=== PATIENT | female | born 1940 | race Caucasian/White ===

== ENCOUNTER 2021-07-25 20:12 | Inpatient (IN) | payer MEDICARE ==
[2021-07-25 21:52] VITALS: BMI 28.0
[2021-07-25 23:26] LABS: SARS-CoV-2 NAA Rapid Test Not Detected (NotDetected)
[2021-07-26] MEDS: Sodium Chloride 0.9% 1,000 ML IV SCH ×3 (00:34→21:06)
[2021-07-26] MEDS ORDERED: Piperacillin/Tazobactam 3.375 GM in Sodium Chloride 0.9% 100 ML IVPB SCH (01:00)
[2021-07-26] MEDS ORDERED: Ondansetron PF 4 MG/2 ML Vial IVP PRN (03:18)
[2021-07-26] MEDS ORDERED: Ondansetron ODT 4 MG TAB PO PRN (03:18)
[2021-07-26] MEDS ORDERED: Acetaminophen 650 MG Suppository PR PRN (03:18)
[2021-07-26] MEDS ORDERED: Morphine 4 MG/ML VIAL SLOW IVP PRN (03:20)
[2021-07-26] MEDS: Piperacillin/Tazobactam 3.375 GM in Sodium Chloride 0.9% 100 ML IVPB SCH ×3 (05:58→21:05)
[2021-07-26 06:20] LABS: #Lymphocytes 1.5 thou/uL (1.20-3.40); #Monocytes 1.3 thou/uL (0.11-0.59); #Neutrophils 10.5 thou/uL (1.40-6.50); %Basophils 0.3 % (0.0-1.0); %Eosinophils 0.2 % (0.0-10.0); %Neutrophils 78.5 % (42.0-75.0); Mean Corpuscular HGB CONC 33.3 g/dL (32.0-36.0); Mean Corpuscular Hemoglobin 30.5 pg (27.0-31.0); Mean Corpuscular Volume 91.6 fL (78.0-98.0); Mean Platelet Volume 8.6 fL (7.4-10.4); Platelet Count 193 thou/uL (130-400); Red Blood Cell (RBC) Count 3.93 mill/uL (4.20-5.40); White Blood Cell (WBC) Count 13.4 thou/uL (4.8-10.8)
[2021-07-26 06:42] LABS: Anion Gap 10 mmol/L (10-20); BUN (Urea Nitrogen) 14 mg/dL (9.8-20.1); CK (CPK) 643 U/L (29-168); Calc. Creatinine Clearance 77 mL/min (70-130); Calcium 8.5 mg/dL (7.8-10.44); Carbon Dioxide 22 mmol/L (23-31); Chloride 109 mmol/L (98-107); Glucose 101 mg/dL (83-110); Potassium 3.5 mmol/L (3.5-5.1); Sodium 137 mmol/L (136-145)
[2021-07-26] MEDS ORDERED: FLU VACC QS2021-22(65YR UP)/PF 240 MCG/0.7 ML SYRINGE IM ONE (09:00)
[2021-07-26] MEDS ORDERED: Famotidine/PF 20 mg/2ml Vial ONE (11:05)
[2021-07-26] MEDS ORDERED: Fentanyl 100 MCG/2 ML VIAL ONE (12:01)
[2021-07-26] MEDS ORDERED: Bacitracin Zinc Ointment 30 gm TUBE ONE (12:05)
[2021-07-26] MEDS ORDERED: Bupivacaine PF 0.5% 30 ML VIAL ONE (12:05)
[2021-07-26] MEDS ORDERED: Neomycin-Polymyxin 1 ML AMP ONE (12:05)
[2021-07-26] MEDS ORDERED: Piperacillin/Tazobactam 3.375 GM VIAL ONE (12:07)
[2021-07-26] MEDS ORDERED: Sodium Chloride 0.9% 100 ML ONE (12:07)
[2021-07-26] MEDS ORDERED: PROPOFOL 200 MG/20 ML VIAL ONE (12:41)
[2021-07-26] MEDS ORDERED: Dexamethasone 20 MG/5 ML VIAL ONE (12:41)
[2021-07-26] MEDS ORDERED: Lidocaine 1% PF 5 ML VIAL ONE (12:41)
[2021-07-26] MEDS ORDERED: Ondansetron PF 4 MG/2 ML Vial ONE (12:41)
[2021-07-26] MEDS ORDERED: Ondansetron HCl/PF 4 MG/2 ML Vial IVP PRN (13:41)
[2021-07-27 04:41] LABS: #Lymphocytes 0.8 thou/uL (1.20-3.40); #Monocytes 0.3 thou/uL (0.11-0.59); #Neutrophils 7.2 thou/uL (1.40-6.50); %Basophils 0.2 % (0.0-1.0); %Eosinophils 0.1 % (0.0-10.0); %Lymphocytes 9.5 % (21.0-51.0); %Neutrophils 86.2 % (42.0-75.0); Hemoglobin 11.3 g/dL (12.0-16.0); Mean Corpuscular HGB CONC 33.3 g/dL (32.0-36.0); Mean Corpuscular Hemoglobin 30.6 pg (27.0-31.0); Mean Corpuscular Volume 91.9 fL (78.0-98.0); Mean Platelet Volume 8.5 fL (7.4-10.4); Platelet Count 173 thou/uL (130-400); RBC Distribution Width 13.8 % (11.5-14.5); Red Blood Cell (RBC) Count 3.68 mill/uL (4.20-5.40); White Blood Cell (WBC) Count 8.3 thou/uL (4.8-10.8)
[2021-07-27] MEDS: Piperacillin/Tazobactam 3.375 GM in Sodium Chloride 0.9% 100 ML IVPB SCH ×2 (05:17→16:02)
[2021-07-27] MEDS: Sodium Chloride 0.9% 1,000 ML IV SCH ×2 (06:15→16:11)
[2021-07-28] MEDS: Piperacillin/Tazobactam 3.375 GM in Sodium Chloride 0.9% 100 ML IVPB SCH ×3 (00:19→16:05)
[2021-07-28] MEDS: Sodium Chloride 0.9% 1,000 ML IV SCH ×2 (05:57→16:05)
[2021-07-28] MEDS ORDERED: Polyethylene Glycol 3350 17 GM Packet PO PRN (08:07)
[2021-07-28] MEDS ORDERED: Non-Formulary Item 1 EACH (Famotidine [Famotidine] 40 MG Tablet) PO SCH (09:00)
[2021-07-28] MEDS: Docusate 100 MG CAP PO SCH ×2 (09:46→21:10)
[2021-07-28] MEDS: Saccharomyces boulardii 250 MG CAP PO SCH (09:46)
[2021-07-28] MEDS: Multivit, Therapeutic 1 TAB PO SCH (09:46)
[2021-07-28] MEDS: Famotidine 20 MG TAB PO SCH ×2 (09:47→21:10)
[2021-07-28] MEDS: Acetaminophen 325 MG TAB PO PRN (17:27)
[2021-07-28] MEDS ORDERED: Multivit, Therapeutic 1 TAB PO SCH (21:00)
[2021-07-28] MEDS: Folic Acid 1 MG TAB PO SCH (21:10)
[2021-07-28] MEDS: Cyanocobalamin (Vitamin B-12) 1,000 MCG TAB PO SCH (21:10)
[2021-07-29] MEDS: Piperacillin/Tazobactam 3.375 GM in Sodium Chloride 0.9% 100 ML IVPB SCH ×4 (00:07→20:16)
[2021-07-29] MEDS: Acetaminophen 325 MG TAB PO PRN ×2 (00:12→18:31)
[2021-07-29 06:24] LABS: #Basophils 0.1 thou/uL (0.0-0.2); #Eosinphils 0.2 thou/uL (0.0-0.7); #Lymphocytes 2.1 thou/uL (1.20-3.40); #Monocytes 0.8 thou/uL (0.11-0.59); #Neutrophils 4.5 thou/uL (1.40-6.50); %Basophils 0.7 % (0.0-1.0); %Eosinophils 2.9 % (0.0-10.0); %Lymphocytes 27.3 % (21.0-51.0); %Monocytes 10.2 % (0.0-10.0); %Neutrophils 58.9 % (42.0-75.0); Hemoglobin 11.6 g/dL (12.0-16.0); Mean Corpuscular HGB CONC 33.8 g/dL (32.0-36.0); Mean Corpuscular Hemoglobin 31.4 pg (27.0-31.0); Mean Corpuscular Volume 92.8 fL (78.0-98.0); Mean Platelet Volume 8.2 fL (7.4-10.4); Platelet Count 203 thou/uL (130-400); RBC Distribution Width 13.8 % (11.5-14.5); White Blood Cell (WBC) Count 7.6 thou/uL (4.8-10.8)
[2021-07-29] MEDS: Sodium Chloride 0.9% 1,000 ML IV SCH ×2 (06:28→20:18)
[2021-07-29 06:45] LABS: Anion Gap 10 mmol/L (10-20); BUN (Urea Nitrogen) 15 mg/dL (9.8-20.1); Calc. Creatinine Clearance 68 mL/min (70-130); Calcium 8.5 mg/dL (7.8-10.44); Carbon Dioxide 23 mmol/L (23-31); Chloride 109 mmol/L (98-107); Glucose 88 mg/dL (83-110); Magnesium 1.8 mg/dL (1.6-2.6); Phosphorus 3.3 mg/dL (2.3-4.7); Potassium 3.5 mmol/L (3.5-5.1); Sodium 138 mmol/L (136-145)
[2021-07-29] MEDS ORDERED: Magnesium 2 GM/50 ML 2 GM in Premix Bag 1 BAG IVPB SCH (07:00)
[2021-07-29] MEDS ORDERED: Thrombin 5000 UNITS/5 ML VIAL ONE (13:54)
[2021-07-29] MEDS ORDERED: Mineral Oil Sterile 10 ML VIAL ONE (13:54)
[2021-07-29] MEDS ORDERED: Bupivacaine PF 0.5% 30 ML VIAL ONE (13:54)
[2021-07-29] MEDS ORDERED: Neomycin-Polymyxin 1 ML AMP ONE (13:54)
[2021-07-29] MEDS ORDERED: Bacitracin Zinc Ointment 30 gm TUBE ONE (13:54)
[2021-07-29] MEDS ORDERED: Fentanyl 100 MCG/2 ML VIAL ONE (13:59)
[2021-07-29] MEDS ORDERED: Famotidine/PF 20 mg/2ml Vial ONE (13:59)
[2021-07-29] MEDS ORDERED: Lidocaine 1% PF 5 ML VIAL ONE (14:43)
[2021-07-29] MEDS ORDERED: PROPOFOL 200 MG/20 ML VIAL ONE (14:43)
[2021-07-29] MEDS ORDERED: Ondansetron PF 4 MG/2 ML Vial ONE (14:43)
[2021-07-29] MEDS ORDERED: HYDROmorphone 2 MG/ML VIAL ONE (15:27)
[2021-07-29] MEDS: Famotidine 20 MG TAB PO SCH ×2 (15:47→20:18)
[2021-07-29] MEDS: Multivit, Therapeutic 1 TAB PO SCH (15:47)
[2021-07-29] MEDS: Saccharomyces boulardii 250 MG CAP PO SCH (15:47)
[2021-07-29] MEDS: Docusate 100 MG CAP PO SCH ×2 (15:47→20:18)
[2021-07-29] MEDS: Potassium Chloride 20 MEQ TAB PO SCH ×2 (15:47→17:16)
[2021-07-29] MEDS ORDERED: Promethazine HCl 25 MG/ML VIAL IVPB PRN (16:20)
[2021-07-29] MEDS ORDERED: Ondansetron HCl/PF 4 MG/2 ML Vial IVP PRN (16:20)
[2021-07-29] MEDS ORDERED: Promethazine HCl 25 MG/ML VIAL IM PRN (16:20)
[2021-07-29] MEDS ORDERED: hydrALAZINE 20 MG/ML VIAL ONE (16:24)
[2021-07-29] MEDS: traMADol HCl 50 MG TAB PO PRN (17:16)
[2021-07-29] MEDS: Folic Acid 1 MG TAB PO SCH (20:18)
[2021-07-29] MEDS: Cyanocobalamin (Vitamin B-12) 1,000 MCG TAB PO SCH (20:18)
[2021-07-30] MEDS: Piperacillin/Tazobactam 3.375 GM in Sodium Chloride 0.9% 100 ML IVPB SCH ×3 (03:41→20:30)
[2021-07-30] MEDS: Acetaminophen 325 MG TAB PO PRN (05:03)
[2021-07-30] MEDS: Saccharomyces boulardii 250 MG CAP PO SCH (09:02)
[2021-07-30] MEDS: Multivit, Therapeutic 1 TAB PO SCH (09:02)
[2021-07-30] MEDS: Famotidine 20 MG TAB PO SCH ×2 (09:02→20:33)
[2021-07-30] MEDS: Docusate 100 MG CAP PO SCH ×2 (09:02→20:33)
[2021-07-30] MEDS: traMADol HCl 50 MG TAB PO PRN (17:44)
[2021-07-30] MEDS: Cyanocobalamin (Vitamin B-12) 1,000 MCG TAB PO SCH (20:33)
[2021-07-30] MEDS: Folic Acid 1 MG TAB PO SCH (20:33)
[2021-07-31] MEDS: traMADol HCl 50 MG TAB PO PRN (00:58)
[2021-07-31] MEDS: Piperacillin/Tazobactam 3.375 GM in Sodium Chloride 0.9% 100 ML IVPB SCH ×3 (05:19→20:06)
[2021-07-31] MEDS: Saccharomyces boulardii 250 MG CAP PO SCH (08:23)
[2021-07-31] MEDS: hydrALAZINE 20 MG/ML VIAL SLOW IVP SCH ×2 (08:23→16:19)
[2021-07-31] MEDS: Famotidine 20 MG TAB PO SCH ×2 (08:23→20:06)
[2021-07-31] MEDS: Docusate 100 MG CAP PO SCH ×2 (08:23→20:06)
[2021-07-31] MEDS: Multivit, Therapeutic 1 TAB PO SCH (08:23)
[2021-07-31] MEDS: Folic Acid 1 MG TAB PO SCH (20:06)
[2021-07-31] MEDS: Cyanocobalamin (Vitamin B-12) 1,000 MCG TAB PO SCH (20:06)
[2021-08-01] MEDS: Acetaminophen 325 MG TAB PO PRN (04:07)
[2021-08-01] MEDS: Piperacillin/Tazobactam 3.375 GM in Sodium Chloride 0.9% 100 ML IVPB SCH ×2 (04:08→12:27)
[2021-08-01] MEDS: Docusate 100 MG CAP PO SCH (09:07)
[2021-08-01] MEDS: Saccharomyces boulardii 250 MG CAP PO SCH (09:07)
[2021-08-01] MEDS: Multivit, Therapeutic 1 TAB PO SCH (09:07)
[2021-08-01] MEDS: Famotidine 20 MG TAB PO SCH (09:08)
[2021-08-01 18:11] LABS: SARS-CoV-2 PCR by NAA Not Detected (NotDetected)
[2021-08-01 19:31] VITALS: BP 162/75; TEMP 98.3
== END 2021-08-01 20:10 | DRG 577 ==
LOC: SURG A 20:12 → INTOOBSV 20:12 → OBSVTOIN 07-26 15:44
PROVIDERS: ADMIT Internal Medicine; ATTEND Internal Medicine
PROC: 0JBJ0ZZ Excision of Right Hand Subcutaneous Tissue and Fascia, Open Approach (ICD-10-PCS; principal; 2021-07-26)
PROC: 01Q60ZZ Repair Radial Nerve, Open Approach (ICD-10-PCS; 2021-07-26)
PROC: 01Q40ZZ Repair Ulnar Nerve, Open Approach (ICD-10-PCS; 2021-07-26)
PROC: 0HRFX73 Replacement of Right Hand Skin with Autologous Tissue Substitute, Full Thickness, External Approach (ICD-10-PCS; 2021-07-29)
PROC: 0HBDXZZ Excision of Right Lower Arm Skin, External Approach (ICD-10-PCS; 2021-07-29)
DX: S61.051A Open bite of right thumb without damage to nail, initial encounter (principal); M62.82 Rhabdomyolysis; L03.114 Cellulitis of left upper limb; N39.0 Urinary tract infection, site not specified; Z20.822 Contact with and (suspected) exposure to COVID-19; N18.2 Chronic kidney disease, stage 2 (mild); F03.90 Unspecified dementia, unspecified severity, without behavioral disturbance, psychotic disturbance, mood disturbance, and anxiety; D63.1 Anemia in chronic kidney disease; E87.6 Hypokalemia; E83.42 Hypomagnesemia; K21.9 Gastro-esophageal reflux disease without esophagitis; E86.0 Dehydration; T68.XXXA Hypothermia, initial encounter; E88.89 Other specified metabolic disorders; T73.0XXA Starvation, initial encounter; Z28.21 Immunization not carried out because of patient refusal; W54.0XXA Bitten by dog, initial encounter; Z79.899 Other long term (current) drug therapy
CPT/HCPCS: 36415; 80048; 82550; 82607; 82746; 83735; 83874; 84100; 84443; 85025; 85652; 87070; 87205; 90471; 90662; 96374; 96376; G0008; G0378; J0360; J1100; J1170; J2270; J2405; J2543; J2704; J3010; J3475; J3490; J7050; S0020; S0028; U0002; U0003; U0005

== ENCOUNTER 2023-12-21 16:21 | Inpatient (IN) | payer MEDICARE, MEDICAID ==
[~2023-12-21 16:21] MED LIST: Iopamidol-370 76% 500 ML MDV (1 ML CHARGE) ONE
[2023-12-21 17:22] LABS: Bilirubin Moderate (Negative); Blood, Urine Large (Negative); Glucose, Urine (Dipstick) Negative (Negative); Ketone, Urine Trace mg/dL (Negative); Leukocyte Moderate (Negative); Nitrite Negative (Negative); Protein, Urine (Dipstick) > or equal to 300 mg/dL (Neg-Trace); Specific Gravity, Urine 1.025 (1.005-1.030)
[2023-12-21 17:37] LABS: #Basophils 0.06 10x3/uL (0.0-0.2); #Eosinphils Less than 0.03 10x3/uL (0.0-0.7); %Basophils 0.6 % (0.0-1.0); %Eosinophils 0.1 % (0.0-10.0); %Lymphocytes 10.9 % (21.0-51.0); %Monocytes 9.6 % (0.0-10.0); %Neutrophils 78.2 % (42.0-75.0); Hematocrit 37.2 % (36.0-47.0); Mean Corpuscular HGB CONC 32.3 g/dL (32.0-36.0); Mean Corpuscular Hemoglobin 30.8 pg (27.0-31.0); Mean Corpuscular Volume 95.6 fL (78.0-98.0); Mean Platelet Volume 10.2 fL (7.4-10.4); Platelet Count 338 10x3/uL (130-400); RBC Distribution Width 14.7 % (11.5-14.5); Red Blood Cell (RBC) Count 3.89 mill/uL (4.20-5.40)
[2023-12-21 17:47] LABS: Bacteria/HPF None Seen HPF (None Seen); CAUTI Indications for Culture Alt mental st,lethar; RBC/HPF Greater than 50 HPF (0-3); Squamous Epithelial 21-50 HPF (0-3); WBC/HPF Greater than 50 HPF (0-3)
[2023-12-21 17:50] LABS: Clarity Turbid (Clear)
[2023-12-21 17:53] LABS: Urine Culture Reflex Yes Yes
[2023-12-21 17:56] LABS: ALT (SGPT) 9 U/L (8-55); AST (SGOT) 30 U/L (5-34); Alkaline Phosphatase 50 U/L (40-110); Anion Gap 19 mmol/L (10-20); BUN (Urea Nitrogen) 18 mg/dL (9.8-20.1); CK (CPK) 13 U/L (29-168); Calc. Creatinine Clearance 0 mL/min (70-130); Carbon Dioxide 21 mmol/L (23-31); Chloride 101 mmol/L (98-107); Estimated GFR 76; Glucose 127 mg/dL (83-110); Lipase 13 U/L (8-78); Potassium 4.7 mmol/L (3.5-5.1); Sodium 136 mmol/L (136-145)
[2023-12-21 18:01] LABS: Troponin I 0.016 ng/mL (< 0.028)
[2023-12-21] MEDS ORDERED: Sodium Chloride 0.9% 100 ML ONE (18:07)
[2023-12-21] MEDS ORDERED: cefTRIAXone (ROCEPHIN) 2 GM VIAL ONE (18:07)
[2023-12-21] MEDS ORDERED: Mineral Oil ENEMA ONE (19:54)
[2023-12-21] MEDS ORDERED: Acetaminophen 325 MG TAB PO PRN (20:10)
[2023-12-21] MEDS ORDERED: Ondansetron PF 4 MG/2 ML Vial IVP PRN (20:10)
[2023-12-21] MEDS ORDERED: Acetaminophen 650 MG Suppository PR PRN (20:10)
[2023-12-21] MEDS ORDERED: Ondansetron ODT 4 MG TAB PO PRN (20:10)
[2023-12-21] MEDS ORDERED: Senokot S 8.6-50 MG TAB PO PRN (20:10)
[2023-12-21 20:45] LABS: Lactic Acid 3.2 mmol/L (0.5-2.2)
[2023-12-21] MEDS ORDERED: D5 1/2 NS w/20 mEq KCL 1,000 ML ONE (21:24)
[2023-12-22] MEDS: D5 1/2 NS w/20 mEq KCL 1,000 ML IV SCH (04:44)
[2023-12-22] MEDS: Famotidine 20 MG TAB PO SCH (04:44)
[2023-12-22] MEDS: Vancomycin (BATCH) 1.5 GM in Premix 1 BAG IVPB SCH (04:46)
[2023-12-22 05:04] VITALS: BMI 26.2
[2023-12-22 06:40] LABS: Anion Gap 10 mmol/L (10-20); BUN (Urea Nitrogen) 14 mg/dL (9.8-20.1); Calc. Creatinine Clearance 78 mL/min (70-130); Calcium 8.3 mg/dL (7.8-10.44); Carbon Dioxide 23 mmol/L (23-31); Chloride 109 mmol/L (98-107); Estimated GFR 90; Glucose 90 mg/dL (83-110); Potassium 3.3 mmol/L (3.5-5.1); Sodium 139 mmol/L (136-145)
[2023-12-22 07:51] LABS: #Basophils 0.03 10x3/uL (0.0-0.2); %Basophils 0.6 % (0.0-1.0); %Eosinophils 1.4 % (0.0-10.0); %Lymphocytes 38.5 % (21.0-51.0); %Monocytes 13.6 % (0.0-10.0); %Neutrophils 45.7 % (42.0-75.0); Hematocrit 27.4 % (36.0-47.0); Hemoglobin 8.7 g/dL (12.0-16.0); Mean Corpuscular HGB CONC 31.8 g/dL (32.0-36.0); Mean Corpuscular Volume 97.5 fL (78.0-98.0); Platelet Count 197 10x3/uL (130-400); RBC Distribution Width 14.8 % (11.5-14.5); Red Blood Cell (RBC) Count 2.81 mill/uL (4.20-5.40)
[2023-12-22 09:57] VITALS: BMI 26.2
[2023-12-22] MEDS: Folic Acid 1 MG TAB PO SCH (10:30)
[2023-12-22] MEDS: Cyanocobalamin (Vitamin B-12) 1,000 MCG TAB PO SCH (10:30)
[2023-12-22] MEDS: Multivit, Therapeutic 1 TAB PO SCH (10:30)
[2023-12-22] MEDS: cefTRIAXone\\ROCEPHIN 1 GM in Sodium Chloride 0.9% 100 ML IVPB SCH (17:27)
[2023-12-22] MEDS: Mineral Oil ENEMA PR SCH (20:55)
[2023-12-23] MEDS: D5 1/2 NS w/20 mEq KCL 1,000 ML IV SCH (04:59)
[2023-12-23 05:45] LABS: #Basophils 0.04 10x3/uL (0.0-0.2); %Basophils 1.1 % (0.0-1.0); %Eosinophils 2.3 % (0.0-10.0); %Lymphocytes 45.6 % (21.0-51.0); %Monocytes 11.1 % (0.0-10.0); %Neutrophils 39.6 % (42.0-75.0); Hematocrit 28.3 % (36.0-47.0); Mean Corpuscular HGB CONC 31.8 g/dL (32.0-36.0); Mean Corpuscular Hemoglobin 30.3 pg (27.0-31.0); Mean Corpuscular Volume 95.3 fL (78.0-98.0); Mean Platelet Volume 10.1 fL (7.4-10.4); Platelet Count 187 10x3/uL (130-400); RBC Distribution Width 14.7 % (11.5-14.5); Red Blood Cell (RBC) Count 2.97 mill/uL (4.20-5.40)
[2023-12-23 06:12] LABS: Anion Gap 10 mmol/L (10-20); BUN (Urea Nitrogen) 7 mg/dL (9.8-20.1); Calc. Creatinine Clearance 90 mL/min (70-130); Calcium 8.4 mg/dL (7.8-10.44); Carbon Dioxide 22 mmol/L (23-31); Chloride 110 mmol/L (98-107); Estimated GFR 93; Glucose 84 mg/dL (83-110); Magnesium 1.5 mg/dL (1.6-2.6); Potassium 3.4 mmol/L (3.5-5.1); Sodium 139 mmol/L (136-145)
[2023-12-23] MEDS: Magnesium 2 GM/50 ML(in water) 2 GM in Premix 1 BAG IVPB SCH (09:13)
[2023-12-23] MEDS: Polyethylene Glycol 3350 17 GM Packet PO SCH (09:14)
[2023-12-24 06:27] LABS: Anion Gap 15 mmol/L (10-20); BUN (Urea Nitrogen) 5 mg/dL (9.8-20.1); Calc. Creatinine Clearance 86 mL/min (70-130); Calcium 8.7 mg/dL (7.8-10.44); Carbon Dioxide 16 mmol/L (23-31); Chloride 111 mmol/L (98-107); Estimated GFR 92; Glucose 73 mg/dL (83-110); Magnesium 1.9 mg/dL (1.6-2.6); Potassium 4.5 mmol/L (3.5-5.1); Sodium 137 mmol/L (136-145)
[2023-12-25 11:28] VITALS: BP 121/60; TEMP 97.5
== END 2023-12-25 12:00 | DRG 872 ==
LOC: ERS 16:21 → 2NO 20:02 → OBSVTOIN 12-22 16:42
PROVIDERS: ADMIT Student in an Organized Health Care Education/Training Program; ATTEND Hospitalist
DX: A41.9 Sepsis, unspecified organism (principal); N39.0 Urinary tract infection, site not specified; E44.0 Moderate protein-calorie malnutrition; I12.9 Hypertensive chronic kidney disease with stage 1 through stage 4 chronic kidney disease, or unspecified chronic kidney disease; Z51.5 Encounter for palliative care; N18.9 Chronic kidney disease, unspecified; F03.C0 Unspecified dementia, severe, without behavioral disturbance, psychotic disturbance, mood disturbance, and anxiety; F41.8 Other specified anxiety disorders; R53.81 Other malaise; K59.00 Constipation, unspecified; R62.7 Adult failure to thrive; E88.09 Other disorders of plasma-protein metabolism, not elsewhere classified; K21.9 Gastro-esophageal reflux disease without esophagitis; Z79.899 Other long term (current) drug therapy; Z90.710 Acquired absence of both cervix and uterus; Z98.890 Other specified postprocedural states; Z68.26 Body mass index [BMI] 26.0-26.9, adult
CPT/HCPCS: 36415; 36416; 51701; 71045; 74177; 80048; 80053; 81001; 82140; 82550; 83605; 83690; 83735; 84443; 84484; 85025; 87040; 87086; 93005; 96361; 96365; 96375; G0378; J0696; J3370; J3475; J3480; J3490; Q9967